=== PATIENT | male | born 1995 | race Caucasian/White ===

== ENCOUNTER 2023-11-16 01:12 | Emergency (ER) | payer MEDICAID ==
[~2023-11-16] VITALS: Ht 170.2 cm; Wt 75.0 kg
[2023-11-16 03:02] VITALS: BP 140/88; PULSE 110; RESP 16; TEMP 98.6; O2SAT 99
== END 2023-11-16 03:04 ==
LOC: ER 01:12
DX: S80.211A Abrasion, right knee, initial encounter (principal); W19.XXXA Unspecified fall, initial encounter; Y93.89 Activity, other specified; Y92.89 Other specified places as the place of occurrence of the external cause; Y99.8 Other external cause status
CPT/HCPCS: 99283